=== PATIENT | female | born 1995 | race African-American/Black ===

== ENCOUNTER 2019-09-25 08:16 | Day surgery (SDC) | payer OTHER ==
[2019-09-25] MEDS ORDERED: SEVOFLURANE 250 ML LIQUID INH ONE (08:17)
[2019-09-25] MEDS ORDERED: ONDANSETRON 4 MG/2 ML VIAL IVP ONE (08:17)
[2019-09-25] MEDS ORDERED: DEXAMETHASONE 4 MG/ML VIAL IVP ONE (08:17)
[2019-09-25] MEDS ORDERED: PROPOFOL 200 MG/20 ML VIAL IVP ONE (08:17)
[2019-09-25] MEDS ORDERED: NEOSTIGMINE 1 MG/1 ML 10 ML MDV IVP ONE (08:17)
[2019-09-25] MEDS ORDERED: ROCURONIUM 50 MG/5 ML VIAL IVP ONE (08:17)
[2019-09-25] MEDS ORDERED: KETOROLAC 30 MG/ML VIAL IVP ONE (08:17)
[2019-09-25] MEDS ORDERED: GLYCOPYRROLATE 1 MG/5 ML VIAL IVP ONE (08:17)
[2019-09-25] MEDS ORDERED: fentaNYL 100 MCG/2 ML VIAL IVP ONE (08:17)
[2019-09-25] MEDS ORDERED: LACTATED RINGERS 1,000 ML IV ONE (08:32)
[2019-09-25 08:45] LABS: HCG UR QUAL NEGATIVE
--- NOTE | 2019-09-25 09:23 | ANESTHESIA ---
Pre-Anesthesia VS, & Labs - Diagnosis desires sterilization - Procedure B Laparoscopic salpingectomy Vital Signs: Temp Pulse Resp BP Pulse Ox 36.5 C 75 16 117/73 99 09/25/19 08:32 09/25/19 08:32 09/25/19 08:32 09/25/19 08:32 09/25/19 08:32 Height 5 ft 6.14 in Weight (kg) 85.6 kg - NPO >8 hours - Is Patient ?: No - Lab Results Lab results reviewed: Yes Home Medications and Allergies Home Medications: Ambulatory Orders Copper [Paragard T 380-A] 1 each IY 09/21/19 Copper [Paragard T 380-A] 1 each IY 09/21/19 Allergies/Adverse Reactions: Allergies Allergy/AdvReac Type Severity Reaction Status Date / Time No Known Drug Allergies Allergy Verified 09/21/19 09:23 Anes History & Medical History - Anesthetic History Anesthesia Complications: reports: No previous complications Family history of Anesthesia Complications: Denies Family history of Malignant Hyperthermia: Denies - Medical History Cardiovascular: reports: None Pulmonary: reports: None Gastrointestinal: reports: None Urinary: reports: None Musculoskeletal: reports: Other Endocrine/Autoimmune: reports: None Skin: reports: None Psychosocial: reports: Alcohol (social) Exam General: Alert, Oriented x3, Cooperative Dental: WNL Mouth Openin Fingerbreadth Neck Mobility: Normal Mallampati classification: II Thyromental Distance: 4-6 cm Respiratory: Lungs clear, Normal breath sounds, No respiratory distress Cardiovascular: Regular rate Neurological: Normal speech Mental/Cognitive Status: Alert/Oriented X3, Normal for patient Cognitive Status: Within normal limits Plan Anesthesia Type: General Consent for Procedure(s) Verified and Reviewed: Yes Code Status: Attempt Resuscitation ASA classification: 1-Healthy patient Is this case an emergency?: No
[2019-09-25] MEDS ORDERED: BUPIVACAINE 0.5% PF 30 ML VIAL ONE (09:40)
[2019-09-25] MEDS ORDERED: BUPIVACAINE 0.5% PF 30 ML VIAL INFIL ONE (11:45)
[2019-09-25] MEDS ORDERED: SILVER NITRATE APPLICATOR TOP ONE (11:52)
[2019-09-25] MEDS ORDERED: HYDROcod/ACETAM 10 MG/325 MG TABLET PO PRN (12:05)
--- NOTE | 2019-09-25 12:09 | OPERATIVE REPORT ---
Operative Report - General Procedure Date: 09/25/19 Planned Procedure: Laparoscopic bilateral salpingectomies Removal of ParaGard IUD Pre-Op Diagnosis: Desire for permanent contraception Procedure Performed: Same as above Post Op Diagnosis: Same as above - Procedure Note Primary Surgeon: Rosa Secondary Surgeon: Mely Anesthesia Provider: Ranjit Anesthesia Technique: General ET tube Pathology: Portions of both fallopian tubes Estimated Blood Loss (mL): 10 Indications: Desire for permanent contraception Findings: Exam under anesthesia revealed a normal-sized anteverted uterus and normal adn exa. Operative findings: The anterior and posterior cul-de-sacs, liver edge and gallbladder were normal. The appendix was searched for but not found. - Other Other Information/Narrative: Procedure: The patient was taken to the operating room, where general endotracheal anesthesia was administered without difficulty. She was then positioned in the low dorsal lithotomy position with her lower extremities in Yellow Fin stirrups. Vagina, perineum, and abdomen were then prepped and draped in a sterile fashion, and an in-an-out catheterization was performed. Procedure Time-Out was then performed. A sterile bivalve speculum was then inserted into the vagina. The ParaGard IUD was removed. A Hulka tenaculum was placed at the anterior lip of the cervix. The speculum was then removed from the vagina. Attention was then turned to the laparoscopy. 0.5% Marcaine was injected infraumbilically, then a 7-mm horizontal skin incision made. A 5 mm laparoscope was inserted into a 5 mm trocar and passed through the anterior layers of the abdominal wall using Optiview technique. The abdomen was then insufflated to 2 L of carbon dioxide. The abdomen was visualized, then 2 additional ports placed at the right and left lower quadrants, first instilling local anesthetic, then placing 5 mm ports. The patient was placed into Trendelenberg and bowel swept out of the cul-de-sac. The right, distal fallopian tube was then grasped and pulled anteriorly and superiorly. The tubo-ovarian ligament was then crossclamped, cauterized, and cut using the Ligasure, then the mesosalpinx was crossclamped, cauterized, and cut, completely the right fallopian tube from the uterus at the cornual region. The left distal fallopian tube was then grasped and pulled anteriorly and superiorly. The tubo-ovarian pedicle was then crossclamped, cauterized, and cut, the distal left fallopian tube from the left ovary. The mesosalpinx was then serially cauterized and cut until the cornual region was reached, then the fallopian tube was crossclamped, cauterized and cut. The surgical sites appeared hemostatic. Both fallopian tubes were too bulky to remove through the 5 mm ports. Therefore, an 11 mm port was placed in the left lower quadrant replacing the 5 mm port in that location. An Endo Catch bag was placed into the abdomen and both tubes were removed through the 11 mm port. A Joon-Nichelle laparoscopic closure device was used to close the 11 mm port site using 2-0 Vicryl suture. The abdomen was then desufflated to the ext ent possible. At this point the laparoscopy was deemed complete, and all trochars were removed from the abdomen. The carbon dioxide gas was then allowed to escape. The incisions were then closed with 4-0 Monocryl in a subcuticular fashion followed by Dermabond skin adhesive. The tenaculum was then removed from the posterior lip of the cervix. The sterile bivalve speculum was then reinserted to ensure that the tenaculum sites were hemostatic. No bleeding was noted, and the speculum was then removed. At this point the procedure was deemed complete. The patient was then replaced supine, awakened, extubated, and transferred to the PACU in stable condition.
[2019-09-25 13:59] VITALS: BP 121/85
== END 2019-09-25 08:17 | disposition home or self-care (01) ==
LOC: SDS 08:16
PROVIDERS: ATTEND Obstetrics & Gynecology
PROC: 0UPD7HZ Removal of Contraceptive Device from Uterus and Cervix, Via Natural or Artificial Opening (ICD-10-PCS; 2019-09-25)
PROC: 0UT74ZZ Resection of Bilateral Fallopian Tubes, Percutaneous Endoscopic Approach (ICD-10-PCS; principal; 2019-09-25 10:00)
DX: Z30.2 Encounter for sterilization (principal); Z30.432 Encounter for removal of intrauterine contraceptive device
CPT/HCPCS: 81025

== ENCOUNTER 2019-09-29 23:08 | Emergency (ER) | payer OTHER ==
[2019-09-29 23:15] VITALS: BP 135/76
--- NOTE | 2019-09-29 23:22 | ED Physician Documentation ---
PD HPI WOUND RECHECK - Stated complaint Stated Complaint: PX AT INCISION SITE - Chief complaint Chief Complaint: Wound - Histroy obtained from History obtained from: Patient - History of Present Illness Location: Abdomen (Postop day 5 from tubal sterilization, some of the glue came off the left lower abdominal wall incision today. 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 - Present Medications Home Medications: Ambulatory Orders Medication Instructions Recorded Confirmed Hydrocodone/Acetaminophen 09/29/19 [Hydrocodone-Acetamin 5-325 mg] - Allergies Allergies/Adverse Reactions: Allergies Allergy/AdvReac Type Severity Reaction Status Date / Time No Known Drug Allergies Allergy Verified 09/29/19 23:15 - Social History Does the pt smoke?: No Smoking Status: Never smoker Does the pt drink ETOH?: Yes Does the pt have substance abuse?: No - Immunizations Immunizations are current?: Yes - POLST Patient has POLST: No PD ED PE NORMAL - Vitals Vital signs reviewed: Yes - General General: Alert and oriented X 3, No acute distress - Abdomen Abdomen: Other (Umbilical wound is fine, left lower quadrant site has some glue scraped off of it but there is no dehiscence. No abdominal tenderness. No evidence of infection.) - Neuro Neuro: Alert and oriented X 3, Normal speech Results - Vitals Vitals: Vital Signs - 24 hr 09/29/19 23:10 Temperature 36.9 C Heart Rate 68 Respiratory 15 Rate Blood Pressure 135/76 H O2 Saturation 100 Oxygen O2 Source Room air Departure - Departure Disposition: 01 Home, Self Care Clinical Impression: Encounter for postoperative wound check Condition: Good Record reviewed to determine appropriate education?: Yes Instructions: ED Wound Check Post Op No Infec
== END 2019-09-29 23:24 | disposition home or self-care (01) ==
LOC: ED 23:08
DX: Z48.00 Encounter for change or removal of nonsurgical wound dressing (principal)
CPT/HCPCS: 99281; 99282